=== PATIENT | female | born 1965 | race Caucasian/White ===

== ENCOUNTER 2016-10-09 15:20 | Emergency (ER) | payer OTHER ==
--- NOTE | ~2016-10-09 | CT101 ---
[facility] A Service of [facility] RADIOLOGY TEXT RESULTS PATIENT: PAXTON MALIK LOCATION: SED : 65 UNIT #: [id number] AGE: [address]: Logan Burch MD SEX: F ORDER DR: [id number] [place] [id number] E MR#: [id number] Acc #: [id number] NAME: PAXTON MALIK. : 1965 SEX: F STUDY DATE/TIME: 10/09/2016 16:13 UNIT: SED ROOM: STUDY DESCRIPTION: CT Maxillofacial Area Wo Cont Attending Physician: Logan Burch M.D. Ordering Physician: Logan Burch M.D. Primary Care Physician: Primary Care Physician No MEDICAL IMAGING REPORT This report is preliminary unless electronic signature is present. EXAM Unenhanced maxillofacial CT, 10/09/2016 PROCEDURE Axial unenhanced maxillofacial CT with coronal reformats. This CT exam was performed with one or more of the following radiation dose reduction techniques: Automatic exposure control, adjustment of mA and/or kV according to patient size, and iterative reconstruction. COMPARISON Prior head CTs from 10/09/2016 and 02/03/2008. HISTORY Right facial bruising and laceration after struck today in face/head by scaffolding. FINDINGS Slight chronic nasal fracture/postsurgical deformities, including the maxillary nasal spine but no acute fracture is seen. The orbital margins bilaterally, zygomatic arches and other facial bone structures are normally intact. There are multiple dental restorations. Motion slightly degrades the exam. The intracranial and orbital and other extracranial soft tissues are normal. IMPRESSION 1. There are slight nasal bone deformities, which may be the result of prior surgery and/or prior trauma but, in any event, no acute bony abnormality is seen. 2. There is no foreign body or CT evidence of orbital or ocular soft tissue injury. [facility] A Service of [facility] RADIOLOGY TEXT RESULTS PATIENT: PAXTON MALIK LOCATION: SED : 65 UNIT #: [id number] AGE: [address]: Logan Burch MD SEX: F ORDER DR: 3. Incidentally noted left maxillary sinus mucous retention cyst. Multiple dental restorations. Dictated by... Vinny Luciano M.D. THIS IS AN ELECTRONICALLY VERIFIED REPORT Vinny Luciano M.D. at 10/11/2016 2:18 PM TEV/psc TD: 10/09/2016 20:20 JOB #: [id number] MEDICAL IMAGING REPORT Page 1 of 1
--- NOTE | ~2016-10-09 | CT71 ---
[facility] A Service [facility] RADIOLOGY TEXT RESULTS PATIENT: PAXTON MALIK LOCATION: SED : 65 UNIT #: [id number] AGE: [address]: Logan Burch MD SEX: F ORDER DR: [id number] [place] [id number] E MR#: [id number] Acc #: [id number] NAME: PAXTON MALIK. : 1965 SEX: F STUDY DATE/TIME: 10/09/2016 16:09 UNIT: SED ROOM: STUDY DESCRIPTION: CT Head Wo Contrast Attending Physician: Logan Burch M.D. Ordering Physician: Logan Burch M.D. Primary Care Physician: Primary Care Physician No MEDICAL IMAGING REPORT This report is preliminary unless electronic signature is present. EXAM Noncontrast CT head. DATE 10/09/2016 HISTORY Right eye laceration, lip laceration, scaffolding collapsed today. Hit in head and face. Pressure sensation in head. COMPARISON Noncontrast CT head 05/05/2007. FINDINGS This CT exam was performed with one or more of the following radiation dose reduction techniques: Automatic exposure control, adjustment of mA and/or kV according to patient size, and iterative reconstruction. No acute intracranial hemorrhage, mass lesion, mass effect or midline shift. No CT evidence of acute or evolving infarct. Ventricular configuration is within normal limits. Mucous retention cyst or polyp within the left maxillary sinus. Mastoid air cells appear clear. No displaced calvarial fractures identified. IMPRESSION 1. No acute intracranial findings. 2. Left maxillary sinus mucous retention cyst or polyp. Dictated by... Spring Ahn M.D. [facility] A Service [facility] RADIOLOGY TEXT RESULTS PATIENT: PAXTON MALIK LOCATION: SED : 65 UNIT #: [id number] AGE: [address]: Logan Burch MD SEX: F ORDER DR: THIS IS AN ELECTRONICALLY VERIFIED REPORT Spring Ahn M.D. at 10/11/2016 8:39 AM TAMAR/manfred TD: 10/09/2016 20:24 JOB #: [id number] MEDICAL IMAGING REPORT Page 1 of 1
[~2016-10-09 15:20] MED LIST: FLEXERIL10 MG PO; LORTAB 5/500 TA1 TA1 PO; MAXALT MLT10 MG/TAB PO; MOTRIN; PREVACID PO; ROBAXIN500 MG PO; TOPROL XL PO; VOLTAREN75 MG PO; ZOFRAN ODT4 MG PO
== END 2016-10-09 17:21 | disposition home or self-care (01) ==
LOC: SED 15:20
DX: S09.90XA Unspecified injury of head, initial encounter (principal); S01.111A Laceration without foreign body of right eyelid and periocular area, initial encounter; W19.XXXA Unspecified fall, initial encounter; Y92.009 Unspecified place in unspecified non-institutional (private) residence as the place of occurrence of the external cause
CPT/HCPCS: 70450; 70486; 99284